=== PATIENT | female | born 1945 | race Caucasian/White ===

== ENCOUNTER 2019-03-24 15:24 | Emergency (ER) | payer OTHER, BC ==
[~2019-03-24] VITALS: Ht 167.6 cm; Wt 83.9 kg
[~2019-03-24 15:24] MED LIST: ASPI-COR81 M3 PO; ATIVAN1 MG PO; DELTASONE5 MG PO; NEURONTIN300 MG PO; OXYCONTIN10 MG PO; VERAPAMIL120 M1 PO
[2019-03-24 15:40] VITALS: Ht 167.6 cm; Wt 83.9 kg
[2019-03-24 17:25] VITALS: BP 107/56
== END 2019-03-24 17:25 | disposition home or self-care (01) ==
LOC: ED 15:24
DX: S51.002A Unspecified open wound of left elbow, initial encounter (principal); V43.62XA Car passenger injured in collision with other type car in traffic accident, initial encounter; Y93.89 Activity, other specified; Y92.488 Other paved roadways as the place of occurrence of the external cause; Y99.8 Other external cause status